=== PATIENT | female | born 2000 | race Caucasian/White ===

== ENCOUNTER 2024-01-01 11:18 | Emergency (ER) | payer BC, OTHER ==
[~2024-01-01] VITALS: Ht 170.2 cm; Wt 125.3 kg
[2024-01-01 11:24] VITALS: BP 125/80; PULSE 66; RESP 20; TEMP 97.6; O2SAT 96
[2024-01-01] MEDS ORDERED: DICL100G32 TP (12:25)
== END 2024-01-01 12:37 | disposition home or self-care (01) ==
LOC: MED 11:18
DX: S80.01XA Contusion of right knee, initial encounter (principal); Z98.890 Other specified postprocedural states; Z79.899 Other long term (current) drug therapy; W01.0XXA Fall on same level from slipping, tripping and stumbling without subsequent striking against object, initial encounter; Y92.89 Other specified places as the place of occurrence of the external cause; Y93.89 Activity, other specified; Y99.8 Other external cause status
CPT/HCPCS: 73562; 99283